=== PATIENT | female | born 1980 | race African-American/Black ===

== ENCOUNTER 2018-06-25 12:13 | Emergency (ER) | payer BC, OTHER | END 2018-06-25 12:22 | disposition home or self-care (01) | LOC: E/R 12:13 | DX: O26.893 Other specified pregnancy related conditions, third trimester (principal); R10.9 Unspecified abdominal pain; Z3A.31 31 weeks gestation of pregnancy | CPT/HCPCS: 99283 ==

== ENCOUNTER 2018-06-25 12:37 | Outpatient (CLI) | payer BC ==
[2018-06-25] MEDS: TERBUTALINE 1 MG/ML INJ SC (14:44)
[2018-06-25] MEDS: LACTATED RINGER'S 1,000 ML IV (14:44)
== END 2018-06-25 16:40 | disposition home or self-care (01) ==
LOC: OBT 12:37 → L-D 12:37 → OBT 16:40
DX: O62.9 Abnormality of forces of labor, unspecified (principal); O09.513 Supervision of elderly primigravida, third trimester; Z3A.30 30 weeks gestation of pregnancy
CPT/HCPCS: 76817; 76818; 85460; 86900; 86901; 96360; 96361; 96372